=== PATIENT | male | born 1995 | race Caucasian/White ===

== ENCOUNTER 2020-07-29 09:41 | Emergency (ER) | payer MEDICAID ==
[~2020-07-29] VITALS: Ht 188 cm; Wt 80.7 kg
[2020-07-29 09:52] VITALS: Ht 188 cm; Wt 80.7 kg
[2020-07-29 11:55] VITALS: BP 125/87
== END 2020-07-29 11:55 | disposition home or self-care (01) ==
LOC: ED 09:41
DX: S22.41XA Multiple fractures of ribs, right side, initial encounter for closed fracture (principal); V49.09XA Driver injured in collision with other motor vehicles in nontraffic accident, initial encounter; Y93.I9 Activity, other involving external motion; Y92.413 State road as the place of occurrence of the external cause; Y99.8 Other external cause status
CPT/HCPCS: 94150; J1885